=== PATIENT | male | born 1980 | race African-American/Black ===

== ENCOUNTER 2018-05-11 14:11 | Emergency (ER) | payer SELFPAY ==
[~2018-05-11] VITALS: Ht 180.3 cm; Wt 90.0 kg
[2018-05-11 14:17] VITALS: BP 128/88
== END 2018-05-11 18:15 | disposition left against medical advice (07) ==
LOC: ER 14:11
DX: M25.511 Pain in right shoulder (principal); J45.909 Unspecified asthma, uncomplicated
CPT/HCPCS: 99283